=== PATIENT | female | born 1945 | race Caucasian/White ===

== ENCOUNTER → 2023-12-01 14:32 | Outpatient (REF) | payer MEDICARE, OTHER, SELFPAY | LOC: RAD 14:32 | PROVIDERS: ATTENDING PHYSICIAN Internal Medicine | DX: M89.9 Disorder of bone, unspecified (principal) | CPT/HCPCS: 71101 ==

== ENCOUNTER → 2024-05-04 16:27 | Outpatient (REF) | payer MEDICARE, OTHER, SELFPAY | LOC: WDC 16:27 | PROVIDERS: ATTENDING PHYSICIAN Internal Medicine Hematology & Oncology; FAMILY PHYSICIAN Internal Medicine | DX: Z12.31 Encounter for screening mammogram for malignant neoplasm of breast (principal) | CPT/HCPCS: 77063; 77067 ==

== ENCOUNTER → 2024-09-29 10:27 | Outpatient (REF) | payer MEDICARE, OTHER, SELFPAY ==
[2024-09-29 11:04] LABS: % Basophils 1.4 % (0-2); % Eosinophils 3.9 % (0-6); % Immature Granulocytes 0.5 % (0-0.5); % Lymphocytes 24.3 % (20.5-51.1); % Monocytes 7.1 % (1.7-9.3); % Neutrophils 62.8 % (42.2-75.2); Absolute Basophils 0.1 10^3/uL (0-0.2); Absolute Eosinophils 0.2 10^3/uL (0-0.7); Absolute Lymphocytes 1.1 10^3/uL (1.2-3.4); Absolute Monocytes 0.3 10^3/uL (0.1-0.6); Absolute Neutrophils 2.7 10^3/uL (1.4-6.5); Hematocrit 38.1 % (37.0-47.0); Mean Corp Hgb Conc. 34.1 g/dL (33.0-37.0); Mean Corpuscular Hgb 31.9 pg (27.0-31.0); Mean Corpuscular Volume 93.4 fL (81.0-99.0); Mean Platelet Volume 9.5 fL (7.4-10.4); Nucleated Red Blood Cells % 0 %; Platelet Count 227 10^3/uL (130-400); Red Blood Cell Count 4.08 10^6/uL (4.20-5.40); Red Cell Dist. Width 12.7 % (11.5-14.5); White Blood Cell Count 4.4 10^3/uL (4.8-10.8)
[2024-09-29 12:21] LABS: ALT (SGPT) 18 U/L (0-35); AST (SGOT) 28 U/L (14-36); Albumin 4.4 g/dl (3.5-5.0); Alkaline Phosphatase 60 U/L (38-126); Blood Urea Nitrogen 19 mg/dl (7-17); Calcium 9.5 mg/dl (8.4-10.2); Carbon Dioxide 27 mmol/L (22-30); Chloride 103 mmol/L (98-107); Glucose 91 mg/dl (70-99); HDL Cholesterol 95 mg/dl; LDL Cholesterol, Calculated 104 mg/dl; Potassium 4.6 mmol/L (3.5-5.1); Sodium 136 mmol/L (135-145); Total Bilirubin 0.5 mg/dl (0.2-1.3); Total Cholesterol 213 mg/dl (50-199); Triglyceride 70 mg/dl (10-149); Very Low Density Lipoprotein 14 mg/dl (0-30); eGFR > 60.00
[2024-09-29 12:45] LABS: TSH Reflex To Free T4 1.32 uIU/ml (0.47-4.68)
== END ==
LOC: REG 10:27
PROVIDERS: ATTENDING PHYSICIAN Internal Medicine
DX: I10 Essential (primary) hypertension (principal); E78.00 Pure hypercholesterolemia, unspecified; R00.0 Tachycardia, unspecified; K21.9 Gastro-esophageal reflux disease without esophagitis; E53.8 Deficiency of other specified B group vitamins
CPT/HCPCS: 36415; 80053; 80061; 84443; 85025

== ENCOUNTER → 2024-11-04 09:57 | Outpatient (REF) | payer MEDICARE, OTHER, SELFPAY | LOC: RCS 09:57 | PROVIDERS: ATTENDING PHYSICIAN Internal Medicine Cardiovascular Disease; FAMILY PHYSICIAN Internal Medicine | DX: I34.0 Nonrheumatic mitral (valve) insufficiency (principal); Z92.21 Personal history of antineoplastic chemotherapy | CPT/HCPCS: 93306 ==

== ENCOUNTER → 2024-11-22 11:03 | Outpatient (REF) | payer MEDICARE, OTHER, SELFPAY ==
[2024-11-22 12:07] LABS: % Basophils 0.2 % (0-2); % Eosinophils 0.3 % (0-6); % Immature Granulocytes 0.6 % (0-0.5); % Lymphocytes 8.8 % (20.5-51.1); % Monocytes 2.8 % (1.7-9.3); % Neutrophils 87.3 % (42.2-75.2); Absolute Immature Granulocytes 0.1 10^3/uL (0-0.05); Absolute Lymphocytes 0.8 10^3/uL (1.2-3.4); Absolute Monocytes 0.3 10^3/uL (0.1-0.6); Absolute Neutrophils 8.2 10^3/uL (1.4-6.5); Hematocrit 40.5 % (37.0-47.0); Hemoglobin 13.5 g/dL (12.0-16.0); Mean Corp Hgb Conc. 33.3 g/dL (33.0-37.0); Mean Corpuscular Hgb 31.8 pg (27.0-31.0); Mean Corpuscular Volume 95.3 fL (81.0-99.0); Mean Platelet Volume 9.5 fL (7.4-10.4); Nucleated Red Blood Cells % 0 %; Platelet Count 213 10^3/uL (130-400); Red Blood Cell Count 4.25 10^6/uL (4.20-5.40); Red Cell Dist. Width 14.3 % (11.5-14.5); White Blood Cell Count 9.4 10^3/uL (4.8-10.8)
[2024-11-22 12:22] LABS: Erythrocyte Sed Rate 5 mm/hour (0-20)
[2024-11-22 12:46] LABS: ALT (SGPT) 37 U/L (0-35); AST (SGOT) 27 U/L (14-36); Albumin 4.5 g/dl (3.5-5.0); Alkaline Phosphatase 62 U/L (38-126); Blood Urea Nitrogen 22 mg/dl (7-17); C-Reactive Protein < 5.00 mg/L (0.0-10.00); Calcium 10.1 mg/dl (8.4-10.2); Carbon Dioxide 28 mmol/L (22-30); Chloride 104 mmol/L (98-107); Glucose 131 mg/dl (70-99); Potassium 4.7 mmol/L (3.5-5.1); Sodium 140 mmol/L (135-145); Total Bilirubin 0.7 mg/dl (0.2-1.3); Total Protein 7.2 g/dl (6.3-8.2); eGFR > 60.00
== END ==
LOC: REG 11:03
PROVIDERS: ATTENDING PHYSICIAN Internal Medicine; OTHER PHYSICIAN Ophthalmology
DX: R51.9 Headache, unspecified (principal); M54.2 Cervicalgia; M26.609 Unspecified temporomandibular joint disorder, unspecified side
CPT/HCPCS: 36415; 70330; 72052; 80053; 85025; 85652; 86140

== ENCOUNTER 2024-12-08 10:50 | Emergency (ER) | payer MEDICARE, OTHER, SELFPAY ==
[2024-12-08] VITALS (12 sets, daily range): BP systolic 101–165; BP diastolic 68–92; BMI 24.4
[2024-12-08 10:57] LABS: Glucose - Point of Care 127 mg/dl (70-99)
[2024-12-08 11:09] LABS: % Basophils 0.4 % (0-2); % Eosinophils 0.7 % (0-6); % Immature Granulocytes 0.4 % (0-0.5); % Lymphocytes 27.7 % (20.5-51.1); % Monocytes 7.2 % (1.7-9.3); % Neutrophils 63.6 % (42.2-75.2); Absolute Eosinophils 0.1 10^3/uL (0-0.7); Absolute Lymphocytes 2.7 10^3/uL (1.2-3.4); Absolute Monocytes 0.7 10^3/uL (0.1-0.6); Absolute Neutrophils 6.1 10^3/uL (1.4-6.5); Hemoglobin 15.8 g/dL (12.0-16.0); Mean Corp Hgb Conc. 35.1 g/dL (33.0-37.0); Mean Corpuscular Volume 91.1 fL (81.0-99.0); Mean Platelet Volume 9.7 fL (7.4-10.4); Nucleated Red Blood Cells % 0 %; Platelet Count 213 10^3/uL (130-400); Red Blood Cell Count 4.94 10^6/uL (4.20-5.40); Red Cell Dist. Width 13.1 % (11.5-14.5); White Blood Cell Count 9.6 10^3/uL (4.8-10.8)
[2024-12-08 11:20] LABS: INR 1.01; PT 13.9 Sec (11.4-14.6)
[2024-12-08 11:21] LABS: APTT 23.1 Sec (23.4-35.0)
[2024-12-08 11:30] LABS: Troponin I < 0.012 ng/ml
[2024-12-08 11:31] LABS: Blood Urea Nitrogen 30 mg/dl (7-17); Calcium 10.1 mg/dl (8.4-10.2); Carbon Dioxide 21 mmol/L (22-30); Chloride 107 mmol/L (98-107); Estimated Creatinine Clearance 51 ml/min; Glucose 148 mg/dl (70-99); Sodium 141 mmol/L (135-145); eGFR > 60.00
--- NOTE | 2024-12-08 12:06 | ED.GENMED ---
History of Present Illness
General
Chief Complaint: Change in Mental Status
Time Seen by Provider: 12/08/24 10:55
History of Present Illness
History of Present Illness:
79-year-old female presenting to the emergency department for fatigue and decreased p.o. intake. Patient arrives with son and friend, note that she has not been eating or drinking for the past 5 days. Patient reports that she is feeling nauseous
and fatigued, also reports some headache. Notes a mild cough. Denies fever. Denies any abdominal pain. Does note some mild dysuria. Denies weakness or numbness to extremities. Denies chest pain or difficulty breathing. Son at bedside notes
that she is usually very active and has been very lethargic. No additional history or symptoms reported at this time
Past History
Past History
ED Past Medical History: Cancer (Breast CA), HTN, Hypercholesterolemia and Other (Ulcers)
ED Past Surgical History: Gynecological (Total Hysterectomy, Left lumpectomy)
Social History
Tobacco: Non-smoker
Alcohol: Occasional
Personal:
Living: alone
Family History
Family History: CAD
Phy Exam
Physical Exam
Physical Exam:
General: Dry mucous membranes
HEENT: protecting airway
Neck: appears supple
CV: Normal heart rate, regular rhythm
Resp: No accessory muscle use, no increased work of breathing, lungs clear to auscultation bilaterally
Abd: Soft and non-distended, no tenderness to palpation, normal bowel sounds
Extremities: No deformities, no swelling, no erythema, pulses and sensation intact
Neuro: alert, no focal neurologic deficit
: deferred
Rectal: deferred
Psych: Normal affect
Skin: Intact
Course
Orders/Labs/Results
Orders:
Orders
12/08/24 10:55
Electrocardiogram (*1) Urgent
Reason for Study: Other
Other Reason for Exam: Possible Stroke
12/08/24 10:56
EKG- Treatment ONCE
12/08/24 11:00
Electrocardiogram (*1) Stat
Comment: ALREADY DONE IN ED
12/08/24 11:02
Basic Metabolic Panel Urgent
Complete Blood Count/With Diff Urgent
PTT Urgent
Prothrombin Time Urgent
Troponin I Urgent
12/08/24 11:45
CT Head W/o Iv Contrast Urgent
Comment:
Reason For Exam: change in mental
0.9% Sodium Chloride 1000 ml [Nss] 1,000 ml IV BOLUS
12/08/24 11:50
CR Chest - 2 Views Urgent
Comment:
Reason For Exam: cough
12/08/24 11:58
COVID-19 Antigen Urgent
Source: Nasal Swab
Urinalysis Reflex To Culture Urgent
Date Specimen was Collected: 12/08/24
Time Specimen was Collected: 11:48
Urine Microscopic Reflex Cult Urgent
Influenza A+B Rapid Molecular Urgent
HAROLDO Source: Nasal Swab
Specimen Description:
Abnormal Lab Results
12/08/24 12/08/24 12/08/24
10:56 11:02 11:58
MCH 32.0 H pg
(27.0-31.0)
Absolute Monos (auto) 0.7 H 10^3/uL
(0.1-0.6)
APTT 23.1 L Sec
(23.4-35.0)
Carbon Dioxide 21 L mmol/L
(22-30)
BUN 30 H mg/dl
(7-17)
Glucose 148 H mg/dl
(70-99)
Urine Ketones 3+ A
(Negative)
Urine RBC 3-6 A /HPF
(0-2)
Urine Bacteria (Reflex) Few A
(Negative)
Urine Albumin (Reflex) 1+ A
(Neg - Trace)
POC Glucose 127 H mg/dl
(70-99)
12/08/24 11:02
12/08/24 11:57
Vital Signs
Initial and Last Documented VS:
Initial Vital Signs
Pulse Resp BP Pulse Ox
74 16 163/90 99
12/08/24 10:55 12/08/24 10:55 12/08/24 10:55 12/08/24 10:55
Last Documented Vital Signs
Temp Pulse Resp BP Pulse Ox
97.9 F 67 12 101/68 96
12/08/24 10:56 12/08/24 16:45 12/08/24 16:45 12/08/24 16:00 12/08/24 16:45
MDM/Problems Addressed
MDM/Problems Addressed:
79-year-old female presenting to the emergency department with decreased p.o. intake and fatigue. Vital signs on arrival are normal.
On exam patient is resting comfortably, no acute distress or discomfort. Relatively unremarkable exam. Patient seems somewhat slow to respond to questions, however no alterations in consciousness. She does have dry mucous membranes, does appear
slightly dehydrated. Unclear etiology of why patient is having decreased p.o. intake. Does note mild cough and headache. Possible infectious etiology. Will obtain COVID, flu, chest x-ray. No focal neurologic deficits with lower suspicion for
central neurologic process. However given patient's slowness to respond, will obtain CT brain imaging. Patient does note some mild dysuria. Possible urinary tract infection. Will start patient on IV fluids and continue to closely monitor. EKG
obtained, nonischemic, no arrhythmia.
14:40 -alerted by radiology patient with bilateral subdural hematomas, acute on chronic. Patient again denies any trauma. She is on aspirin only, however has not been taking it in the past few days. Message sent to neurosurgery at [facility]
15:15 -neurosurgeon is scrubbed into a case, unable to get back to me at this time. In discussion with family, will consult with Jj
16:30 -patient accepted to [facility]. Will arrange transfer. Remained stable. Neurosurgery without any specific recommendation at this time
*EKG
Interpreted by ED Provider?: Yes
EKG Intrepretation Date: 12/08/24
EKG Intrepretation Time: 12:17
Interpretation: normal
Comparison EKG: no comparison EKG present
Heart Rate: 74
Rate: normal
Rhythm: sinus
[place]: normal axis
Interval: normal interval
QRS Pattern: normal QRS
Ischemia: no ischemia
*Critical Care Note
Total Time (30-74mins, 75-104mins- exclusive of procedures): Not Applicable
ED Attending Note
-
Portions of this chart may have been created with voice recognition software.� Occasional wrong word or��sound alike� substitutions may have occurred due to the inherent limitations of voice recognition software.
Discharge Plan
Departure
Patient Disposition: Acute Care Hospital
Date of Disposition: 12/08/24
Time of Disposition: 16:41
Condition: Critical
Discharge Problem:
Bilateral subdural hematomas, Headache
Prescriptions:
No Action
enalapril maleate 5 MG tablet
5 mg PO BID PRN (Reason: elevated BP)
aspirin 325 MG tablet
325 mg PO Q48H
lorazepam 0.5 MG tablet
0.25 mg PO Q4HPRN PRN (Reason: as directed)
vitamin B complex 1 TAB tablet
1 tab PO Q48H
multivitamin with folic acid [Tab-A-Lalo] 1 TABLET tablet
1 tab PO DAILY
Lutein
1 tab PO DAILY
Magnesium
1 tab PO DAILY
Vitamin C:
500 mg PO DAILY
Vitamin D3
1 tab PO DAILY
Zinc
1 tab PO DAILY
Fish Oil Capsule
1 cap PO DAILY
Bromaline
1 tab PO DAILY
wxlegjp-aluv-rmnce-oreg-capryl
1 tab PO DAILY
astaxanthin 4 mg Capsule
4 mg PO DAILY
Zeaxanthin
1 tab PO DAILY
albuterol sulfate 90 mcg/actuation HFA aerosol inhaler
2 puff inhalation Q6H PRN (Reason: shortness of breath or wheezing) Qty: 6.7 0RF
Referrals:
UNKNOWN - PT NOT,INTERVIEWE [Family Provider] -
Hospital Transfer
Other hospital: [facility]
I certify that the patient requires transfer: Yes
Discussed case with accepting physician: Dr. Otoniel Farris
Reason for transfer: specialties available
Interventions
Interventions:
*Risk Screen - Suicide Last Done: 12/08/24 10:56
*General Assessment Last Done: 12/08/24 10:56
*Neglect/Abuse Screening Last Done: 12/08/24 10:56
*ED- Fall Risk Assessment Last Done: 12/08/24 11:22
*ED COVID-19 Vaccine History Last Done: 12/08/24 10:56
ED- Neurological Assessment Last Done: 12/08/24 10:56
ED- Cardiac Assessment Last Done: 12/08/24 10:56
Discharge Date and Time
Print Language: ROMANSH
[2024-12-08 12:28] LABS: COVID-19 Antigen Negative (Negative)
[2024-12-08 12:29] LABS: Urine Albumin 1+ (Neg - Trace); Urine Bilirubin Negative (Negative); Urine Character Clear (Clear); Urine Color Yellow; Urine Glucose Negative (Negative); Urine Ketone 3+ (Negative); Urine Leukocyte Negative (Negative); Urine Nitrite Negative (Negative); Urine Occult Blood Negative (Negative); Urine Specific Gravity 1.025 (<1.030); Urine Urobilinogen 1+ (Neg - 1+)
[2024-12-08 12:43] LABS: Urine Bacteria Few (Negative); Urine White Cell 0-2 /HPF (0-5)
[2024-12-08] MEDS: NSS 1000 IV (12:44)
== END 2024-12-08 21:09 | disposition short-term general hospital (02) ==
LOC: EMR 10:50
PROVIDERS: EMERGENCY PHYSICIAN Student in an Organized Health Care Education/Training Program
DX: S06.5XAA Traumatic subdural hemorrhage with loss of consciousness status unknown, initial encounter (principal); X58.XXXA Exposure to other specified factors, initial encounter; I10 Essential (primary) hypertension; R30.0 Dysuria; R63.8 Other symptoms and signs concerning food and fluid intake; E78.00 Pure hypercholesterolemia, unspecified; Z85.3 Personal history of malignant neoplasm of breast; Z90.710 Acquired absence of both cervix and uterus; Z79.82 Long term (current) use of aspirin; Z11.52 Encounter for screening for COVID-19
CPT/HCPCS: 96360; 99285; 70450; 71046; 80048; 81003; 81015; 82962; 84484; 85025; 85610; 85730; 87502; 87811; 93005

== ENCOUNTER → 2025-01-05 11:41 | Outpatient (REF) | payer OTHER, MEDICARE, SELFPAY ==
[2025-01-05 13:05] LABS: % Basophils 0.9 % (0-2); % Eosinophils 5.3 % (0-6); % Immature Granulocytes 1.1 % (0-0.5); % Monocytes 7.9 % (1.7-9.3); % Neutrophils 57.8 % (42.2-75.2); Absolute Basophils 0.1 10^3/uL (0-0.2); Absolute Eosinophils 0.3 10^3/uL (0-0.7); Absolute Immature Granulocytes 0.1 10^3/uL (0-0.05); Absolute Lymphocytes 1.5 10^3/uL (1.2-3.4); Absolute Monocytes 0.4 10^3/uL (0.1-0.6); Absolute Neutrophils 3.1 10^3/uL (1.4-6.5); Hematocrit 33.3 % (37.0-47.0); Mean Corpuscular Hgb 32.2 pg (27.0-31.0); Mean Corpuscular Volume 97.4 fL (81.0-99.0); Mean Platelet Volume 10.1 fL (7.4-10.4); Nucleated Red Blood Cells % 0 %; Platelet Count 220 10^3/uL (130-400); Red Blood Cell Count 3.42 10^6/uL (4.20-5.40); Red Cell Dist. Width 14.5 % (11.5-14.5); White Blood Cell Count 5.4 10^3/uL (4.8-10.8)
[2025-01-05 13:19] LABS: Blood Urea Nitrogen 18 mg/dl (7-17); Calcium 9.3 mg/dl (8.4-10.2); Carbon Dioxide 27 mmol/L (22-30); Chloride 108 mmol/L (98-107); Glucose 87 mg/dl (70-99); Sodium 143 mmol/L (135-145); eGFR > 60.00
[2025-01-05 17:31] LABS: Urine Albumin Negative (Neg - Trace); Urine Bilirubin Negative (Negative); Urine Character Cloudy (Clear); Urine Color Yellow; Urine Glucose Negative (Negative); Urine Ketone Negative (Negative); Urine Leukocyte 1+ (Negative); Urine Nitrite Negative (Negative); Urine Occult Blood Negative (Negative); Urine Specific Gravity 1.015 (<1.030); Urine Urobilinogen Negative (Neg - 1+)
[2025-01-05 17:39] LABS: Urine Squamous Cell 0-2 /LPF (Few)
[2025-01-05 17:40] LABS: Urine Amorphous Seen; Urine Red Blood Cell 0-2 /HPF (0-2)
[2025-01-05 17:41] LABS: Urine Bacteria Many (Negative); Urine White Cell 16-20 /HPF (0-5)
== END ==
LOC: OLABP 11:41
PROVIDERS: ATTENDING PHYSICIAN Family Medicine
DX: I10 Essential (primary) hypertension (principal); E78.5 Hyperlipidemia, unspecified; Z85.3 Personal history of malignant neoplasm of breast; M54.2 Cervicalgia; U07.1 COVID-19
CPT/HCPCS: 36415; 80048; 81003; 81015; 85025; 87086; 87088; 87186

== ENCOUNTER → 2025-01-10 11:19 | Outpatient (REF) | payer MEDICARE, OTHER, SELFPAY | LOC: HWRAD 11:19 | PROVIDERS: ATTENDING PHYSICIAN Physician Assistant; FAMILY PHYSICIAN Internal Medicine | DX: S06.5XAA Traumatic subdural hemorrhage with loss of consciousness status unknown, initial encounter (principal) | CPT/HCPCS: 70450 ==

== ENCOUNTER 2025-03-02 12:59 | Emergency (ER) | payer MEDICARE, OTHER, SELFPAY ==
[2025-03-02 13:03] VITALS: BP 162/121
--- NOTE | 2025-03-02 14:16 | ED.GENMED ---
History of Present Illness
General
Chief Complaint: Facial Problem
Time Seen by Provider: 03/02/25 14:16
History of Present Illness
History of Present Illness:
TIME OF INITIAL EVALUATION
- 2:30 PM
REVIEW OF OLD RECORDS
- The patient has history of high blood pressure and hyperlipidemia. The patient had bilateral subdural hematomas in November of this year. At that time she presented with some headache and nausea and appeared lethargic. She had been on aspirin at
that time. Patient was accepted at [facility] at that time. [facility] neurosurgeon was Dr. Deleon.
Note:
CHIEF COMPLAINT(S)
Tingling in the right nostril and lower lip, and intermittent numbness in the left hand.
HISTORY OF PRESENT ILLNESS
The patient is an 79-year-old female who presents with episodes of tingling in the right nostril and entire lower lip. She reports that these symptoms began at 11:00 AM with tingling in the right nostril and progressed to include the whole lower lip
at 12:20 PM. Each episode lasted no more than five minutes and has not recurred since. Additionally, the patient experiences intermittent numbness in her left hand, occurring approximately six times over the past four to five days, including a
couple of episodes earlier today. She associates this with difficulty holding her phone due to arthritis. No current numbness is reported. There are no symptoms involving the legs. The patient has a notable history, having undergone jag hole
surgery at [facility] following her last ER visit in November for a headache, nausea, and lethargy. At that time, a small blood clot was identified, for which she completed a three-month regimen of Lovenox. She is not currently on aspirin. There is a family
history of cerebrovascular accidents (CVA).
PHYSICAL EXAM
- Nervous System and Musculoskeletal: No remarkable differences were noted during the facial sensory examination upon touching various areas of the face. Facial movements and shoulder shrugging were normal. Strength in the lower extremities
evaluated by pushing down against resistance was excellent. Patient exhibits good strength in all extremities.
- General: Well appearing in no distress
- HEENT: Moist oral mucosa
- Cardiovascular: No murmurs, normal heart rate, regular rhythm, No chest wall tenderness
- Pulmonary: No respiratory distress, breath sounds are clear and equal
- Abdomen: Soft with no peritoneal signs, no tenderness
- Psychiatric: Appropriate mental status, normal insight and judgement
- Extremities: Nontender, no edema, moves all extremities equally
- Skin: No rash, no lesions
PLAN
- A computed tomography (CT) scan of the head is planned to check for any new bleeding, given the patients history of intracranial bleeding and surgery.
- The patient will continue follow-up with her neurosurgeon on the for further evaluation.
DIFFERENTIAL DIAGNOSIS
The Differential Diagnosis includes, in no particular order and is not limited to:
1. Transient ischemic attack
2. Peripheral neuropathy
3. Trigeminal neuralgia
4. Cerebrovascular accident
5. Multiple sclerosis
6. Anxiety-related somatic symptoms
7. Recurrent subdural hematoma
8. Side effects from previous lovenox therapy
9. Migrainous aura without headache
10. Idiopathic facial tingling sensation
RADIOLOGY
- CT head obtained; There is new high attenuation within the right subdural hemorrhage. Acute on chronic hemorrhage cannot be excluded. Alternatively this could be septations which have developed in the chronic subdural hematoma.
EKG
-
LABS
- CBC unremarkable, chemistries unremarkable
UPDATE
- Call placed to [facility] transfer center at [phone]. Spoke to covering neurosurgeon; suggested transfer to [facility] ED. I also sent these last two CT heads via [facility].
SUMMARY OF ENCOUNTER
The patient, an 79-year-old female, was seen in the emergency department with complaints of tingling in the right nostril and lower lip, along with intermittent numbness in the left hand. Given her prior history of jag hole surgery and concerns
about potential new intracranial bleeding on the right side, further evaluation was deemed necessary. Although an attempt was made to transfer imaging electronically to [facility] for review, technical issues prevented this. Consequently, the decision was
made to transfer the patient to the [facility] ([facility]) for further evaluation by a neurosurgeon, considering the small area of concern identified on imaging at [facility].
DISPOSITION
Transfer to [facility] ([facility]).
ASSESSMENT
The patient potentially has a small new area of concern within the intracranial space on the right side, given the current symptoms and imaging findings.
PLAN
Transfer the patient to [facility] for further evaluation by neurosurgery. Consider performing basic blood work in the interim while awaiting transfer.
MEDICAL DECISION MAKING
-Complexity of Data Reviewed: Chronic conditions affecting care include prior history of jag hole surgery and intracranial bleeding, along with a family history of cerebrovascular accidents (CVA). Differential diagnoses include transient ischemic
attack, peripheral neuropathy, trigeminal neuralgia, cerebrovascular accident, multiple sclerosis, anxiety-related somatic symptoms, recurrent subdural hematoma, side effects from previous therapy, migrainous aura without headache, and idiopathic
facial tingling sensation.
-Data:
Category 3: Discussion of management with other healthcare providers, specifically with neurosurgical services at [facility], for transfer due to the concern of a potentially new intracranial issue identified on imaging.
DIAGNOSIS
R29.898 Other symptoms and signs involving the nervous and musculoskeletal systems (tingling and numbness symptoms).
Spoke to Dr. Mau [place] neurosashley at [facility] recommends transfer to [facility] ED
Spoke to Dr. Harrison at [facility] ED - accepts
Past History
Past History
ED Past Medical History: Cancer (Breast CA), HTN, Hypercholesterolemia and Other (Ulcers)
ED Past Surgical History: Gynecological (Total Hysterectomy, Left lumpectomy)
Social History
Tobacco: Non-smoker
Alcohol: Occasional
Personal:
Living: alone
Family History
Family History: CAD
Phy Exam
Physical Exam
Physical Exam:
See HPI
Course
Orders/Labs/Results
Orders:
Orders
03/02/25 13:09
CT Head W/o Iv Contrast Urgent
Comment:
Reason For Exam: numbness/tingling to R face, L hand
03/02/25 16:45
Albuterol [ProAIR HFA INHALER] 2 puff INH Q6H PRN shortness of breath or wheezing
Enalapril [Vasotec] 5 mg PO BID PRN elevated BP
Lorazepam [Ativan] 0.25 mg PO Q4HPRN PRN as directed
vitamin B complex 1 tablet PO Q48H
03/02/25 17:00
Aspirin 325 mg PO Q48H
03/02/25 17:04
Basic Metabolic Panel Urgent
Complete Blood Count/With Diff Urgent
PTT Urgent
Prothrombin Time Urgent
03/03/25 08:00
Bromaline 1 tablet PO DAILY
Lutein 1 tablet PO DAILY
Magnesium 1 tablet PO DAILY
Multivitamin [Theragran] 1 tablet PO DAILY
Vitamin C: 500 mg PO DAILY
Vitamin D3 1 tablet PO DAILY
Zeaxanthin 1 tablet PO DAILY
Zinc 1 tablet PO DAILY
astaxanthin 4 mg PO DAILY
omega-3 fatty acids 1 cap PO DAILY
pvomyvx-qrix-icnpk-oreg-capryl 1 tablet PO DAILY
Abnormal Lab Results
03/02/25
17:04
RBC 4.00 L 10^6/uL
(4.20-5.40)
MCH 32.3 H pg
(27.0-31.0)
BUN 19 H mg/dl
(7-17)
03/02/25 17:04
03/02/25 17:04
Vital Signs
Initial and Last Documented VS:
Initial Vital Signs
Temp Pulse Resp BP Pulse Ox
36.3 C 93 18 162/121 96
03/02/25 13:03 03/02/25 13:03 03/02/25 13:03 03/02/25 13:03 03/02/25 13:03
Last Documented Vital Signs
Temp Pulse Resp BP Pulse Ox
36.3 C 95 18 139/80 99
03/02/25 13:03 03/02/25 16:14 03/02/25 13:03 03/02/25 16:14 03/02/25 16:30
*Pulse Oximetry
SaO2: 96
Oxygen Mode of Delivery: Room air
Patient hypoxic: no
*Critical Care Note
Total Time (30-74mins, 75-104mins- exclusive of procedures): Not Applicable
ED Attending Note
-
Portions of this chart may have been created with voice recognition software.� Occasional wrong word or��sound alike� substitutions may have occurred due to the inherent limitations of voice recognition software.
Discharge Plan
Departure
Patient Disposition: Acute Care Hospital
Date of Disposition: 03/02/25
Time of Disposition: 16:27
Discharge Problem:
Acute on chronic intracranial subdural hematoma
Prescriptions:
No Action
enalapril maleate 5 MG tablet
5 mg PO BID PRN (Reason: elevated BP)
aspirin 325 MG tablet
325 mg PO Q48H
lorazepam 0.5 MG tablet
0.25 mg PO Q4HPRN PRN (Reason: as directed)
vitamin B complex 1 TAB tablet
1 tab PO Q48H
multivitamin with folic acid [Tab-A-Lalo] 1 TABLET tablet
1 tab PO DAILY
Lutein
1 tab PO DAILY
Magnesium
1 tab PO DAILY
Vitamin C:
500 mg PO DAILY
Vitamin D3
1 tab PO DAILY
Zinc
1 tab PO DAILY
Fish Oil Capsule
1 cap PO DAILY
Bromaline
1 tab PO DAILY
qjclxge-kxgl-xyijp-oreg-capryl
1 tab PO DAILY
astaxanthin 4 mg Capsule
4 mg PO DAILY
Zeaxanthin
1 tab PO DAILY
albuterol sulfate 90 mcg/actuation HFA aerosol inhaler
2 puff inhalation Q6H PRN (Reason: shortness of breath or wheezing) Qty: 6.7 0RF
Referrals:
Nadine Longoria MD [Family Provider, Internal Medicine]
Hospital Transfer
Other hospital: [facility] ED
I certify that the patient requires transfer: Yes
Discussed case with accepting physician: Dr. Harrison
Reason for transfer: higher level of care and medical necessity
Interventions
Interventions:
*Risk Screen - Suicide Last Done: 03/02/25 13:03
*General Assessment Last Done: 03/02/25 13:03
*Neglect/Abuse Screening Last Done: 03/02/25 16:11
*ED- Fall Risk Assessment Last Done: 03/02/25 16:11
*ED COVID-19 Vaccine History Last Done: 03/02/25 13:03
*Nursing Disposition Last Done: 03/02/25 18:19
ED- Neurological Assessment Last Done: 03/02/25 16:13
ED-Skin Assessment Last Done: 03/02/25 16:14
Discharge Date and Time
Discharge Date/Time: 03/02/25 18:15
Print Language: LEBANESE
[2025-03-02 16:10] VITALS: BP 139/80
[2025-03-02 16:11] VITALS: BMI 25.0
[2025-03-02 16:14] VITALS: BP 139/80
[2025-03-02 17:16] LABS: Hematocrit 38.0 % (37.0-47.0); Hemoglobin 12.9 g/dL (12.0-16.0); Mean Corp Hgb Conc. 33.9 g/dL (33.0-37.0); Mean Corpuscular Volume 95.0 fL (81.0-99.0); Nucleated Red Blood Cells % 0 %; Platelet Count 205 10^3/uL (130-400); Red Cell Dist. Width 12.3 % (11.5-14.5)
[2025-03-02 17:26] LABS: INR 0.97; PT 13.4 Sec (11.4-14.6)
[2025-03-02 17:27] LABS: APTT 25.7 Sec (23.4-35.0)
[2025-03-02 17:42] LABS: Blood Urea Nitrogen 19 mg/dl (7-17); Calcium 9.1 mg/dl (8.4-10.2); Carbon Dioxide 24 mmol/L (22-30); Chloride 107 mmol/L (98-107); Estimated Creatinine Clearance 59 ml/min; Glucose 90 mg/dl (70-99); Potassium 4.5 mmol/L (3.5-5.1); Sodium 136 mmol/L (135-145); eGFR > 60.00
== END 2025-03-02 18:15 | disposition short-term general hospital (02) ==
LOC: EMR 12:59
PROVIDERS: EMERGENCY PHYSICIAN Emergency Medicine; FAMILY PHYSICIAN Internal Medicine
DX: S06.5XAA Traumatic subdural hemorrhage with loss of consciousness status unknown, initial encounter (principal); X58.XXXA Exposure to other specified factors, initial encounter; I10 Essential (primary) hypertension; E78.00 Pure hypercholesterolemia, unspecified
CPT/HCPCS: 99285; 70450; 80048; 85025; 85610; 85730

== ENCOUNTER → 2025-05-05 12:50 | Outpatient (REF) | payer MEDICARE, OTHER, SELFPAY | LOC: WDC 12:50 | PROVIDERS: ATTENDING PHYSICIAN Internal Medicine Hematology & Oncology; FAMILY PHYSICIAN Family Medicine Geriatric Medicine | DX: Z12.31 Encounter for screening mammogram for malignant neoplasm of breast (principal); Z12.39 Encounter for other screening for malignant neoplasm of breast; R92.333 Mammographic heterogeneous density, bilateral breasts; Z85.3 Personal history of malignant neoplasm of breast | CPT/HCPCS: 77063; 77067 ==

== ENCOUNTER → 2025-05-11 12:47 | Outpatient (REF) | payer MEDICARE, OTHER, SELFPAY | LOC: WDC 12:47 | PROVIDERS: ATTENDING PHYSICIAN Family Medicine Geriatric Medicine; FAMILY PHYSICIAN Internal Medicine | DX: R92.333 Mammographic heterogeneous density, bilateral breasts (principal) | CPT/HCPCS: 76641 ==

== ENCOUNTER → 2025-06-14 08:17 | Outpatient (REF) | payer MEDICARE, OTHER, SELFPAY | LOC: RCS 08:17 | PROVIDERS: ATTENDING PHYSICIAN Internal Medicine Cardiovascular Disease; FAMILY PHYSICIAN Internal Medicine | DX: R00.2 Palpitations (principal) | CPT/HCPCS: 93225; 93226 ==

== ENCOUNTER → 2025-07-13 06:35 | Outpatient (REF) | payer MEDICARE, OTHER, SELFPAY ==
[2025-07-13 07:41] LABS: Hematocrit 40.5 % (37.0-47.0); Hemoglobin 13.5 g/dL (12.0-16.0); Mean Corp Hgb Conc. 33.3 g/dL (33.0-37.0); Mean Corpuscular Volume 92.5 fL (81.0-99.0); Nucleated Red Blood Cells % 0 %; Platelet Count 212 10^3/uL (130-400); Red Cell Dist. Width 12.8 % (11.5-14.5)
[2025-07-13 07:55] LABS: ALT (SGPT) 17 U/L (0-35); AST (SGOT) 22 U/L (14-36); Albumin 4.4 g/dl (3.5-5.0); Alkaline Phosphatase 65 U/L (38-126); Blood Urea Nitrogen 11 mg/dl (7-17); Calcium 9.6 mg/dl (8.4-10.2); Carbon Dioxide 28 mmol/L (22-30); Chloride 105 mmol/L (98-107); Glucose 94 mg/dl (70-99); HDL Cholesterol 89 mg/dl; LDL Cholesterol, Calculated 127 mg/dl; Potassium 4.3 mmol/L (3.5-5.1); Sodium 137 mmol/L (135-145); Total Protein 7.6 g/dl (6.3-8.2); Very Low Density Lipoprotein 25 mg/dl (0-30); eGFR > 60.00
== END ==
LOC: REG 06:35
PROVIDERS: ATTENDING PHYSICIAN Internal Medicine
DX: I10 Essential (primary) hypertension (principal); E78.00 Pure hypercholesterolemia, unspecified; R53.83 Other fatigue
CPT/HCPCS: 36415; 80053; 80061; 84443; 85025

== ENCOUNTER → 2025-07-17 14:09 | Outpatient (REF) | payer MEDICARE, OTHER, SELFPAY | LOC: HWRAD 14:09 | PROVIDERS: FAMILY PHYSICIAN Internal Medicine | DX: S06.5XAA Traumatic subdural hemorrhage with loss of consciousness status unknown, initial encounter (principal) | CPT/HCPCS: 70450 ==